=== PATIENT | male | born 1980 | race American Indian/Alaskan Native ===

== ENCOUNTER 2021-07-27 00:53 | Emergency (ER) | payer SELFPAY ==
[2021-07-27 02:02] LABS: Hematocrit 50.8 % (35.5-45.6); Hemoglobin 16.8 gm/dl (11.8-15.2); Mean Corpuscular HGB Conc 33 % (32-34); Mean Corpuscular Volume 80 fl (84-94); Platelet Count 245 K/mm3 (140-440); Red Blood Count 6.33 M/mm3 (3.65-5.03); Red Cell Distribution Width 13.6 % (13.2-15.2)
[2021-07-27] MEDS ORDERED: ONDANSETRON 4 MG/2 ML INJ IV ONE ×2 (02:05→03:13)
[2021-07-27] MEDS ORDERED: MORPHINE 4 MG/1 ML INJ IV ONE (02:05)
[2021-07-27] MEDS ORDERED: SODIUM CHLORIDE 0.9% 1000 ML 1,000 ML IV ONE ×2 (02:05→03:13)
[2021-07-27] MEDS ORDERED: MORPHINE 4 MG/1 ML INJ ONE (02:07)
--- NOTE | 2021-07-27 02:14 | XRay Report ---
CHEST 2 VIEWS INDICATION / CLINICAL INFORMATION: CP. COMPARISON: None available. FINDINGS: SUPPORT DEVICES: None. HEART / MEDIASTINUM: No significant abnormality. LUNGS / PLEURA: No significant pulmonary or pleural abnormality. No pneumothorax. ADDITIONAL FINDINGS: No significant additional findings. IMPRESSION: 1. No acute findings. Signer Name: Adam Grady DO Signed: 07/27/2021 2:10 AM Workstation Name: [id number]
[2021-07-27 02:25] LABS: Bilirubin,Urine NEG (Negative); Blood,Urine NEG (Negative); Color,Urine Yellow (Yellow); Mucus,Urine FEW /HPF; Protein,Urine <15 mg/dL mg/dL (Negative); RBC,Urine < 1.0 /HPF (0.0-6.0); Urobilinogen,Urine < 2.0 mg/dL (<2.0); WBC,Urine < 1.0 /HPF (0.0-6.0)
[2021-07-27 02:29] LABS: Alanine Aminotransferase 23 units/L (7-56); Albumin 4.7 g/dL (3.9-5); BUN/Creatinine Ratio 16; Blood Urea Nitrogen 13 mg/dL (9-20); Calcium 9.5 mg/dL (8.4-10.2); Hemolysis Index 8
[2021-07-27] MEDS ORDERED: fentaNYL 100 MCG/2 ML INJ IV ONE (03:13)
[2021-07-27] MEDS ORDERED: LIDOCAINE VISCOUS 2% 15 ML ORAL LIQD PO ONE (03:14)
[2021-07-27] MEDS ORDERED: ALUM-MAG HYDROXIDE-SIMETHICONE 200-200-20MG/5ML ORAL LIQD 30 ML PO ONE (03:14)
--- NOTE | 2021-07-27 03:20 | Emergency Department Report ---
ED Abdominal Pain HPI - General Chief Complaint: Abdominal Pain Stated Complaint: CHEST PAIN/ABD PAIN/EMESIS Time Seen by Provider: 07/27/21 01:55 Source: patient, EMS Mode of arrival: Stretcher Limitations: No Limitations - History of Present Illness Initial Comments: 40-year-old male presents with epigastric and upper left abdominal pain that started yesterday and progressively getting worse. Patient also reports some nausea with nonbloody emesis x1. No constipation reported or diarrhea. No fever or chills noted. Patient denies any alcohol drink or any illicit drug use except marijuana. Last bowel movement was yesterday and was normal. No other modifying or associated factors reported. Severity scale (0 -10): 0 - Related Data Previous Rx's Medication Instructions Recorded Last Taken Type Omeprazole Magnesium [PriLOSEC Otc] 20 mg PO BID 30 Days #60 tab NS 07/27/21 Unknown Rx Ondansetron [Zofran Odt] 4 mg PO Q8HR 5 Days #15 tab.rapdis 07/27/21 Unknown Rx NS Allergies Allergy/AdvReac Type Severity Reaction Status Date / Time No Known Allergies Allergy Verified 07/27/21 02:10 ED Review of Systems ROS: Stated complaint: CHEST PAIN/ABD PAIN/EMESIS Other details as noted in HPI Comment: All other systems reviewed and negative Gastrointestinal: abdominal pain, nausea, vomiting. denies: diarrhea, constipation ED Past Medical Hx - Past Medical History Previous Medical History?: No - Surgical History Past Surgical History?: No - Social History Smoking Status: Never Smoker Substance Use Type: Marijuana - Medications Home Medications: Home Medications Medication Instructions Recorded Confirmed Last Taken Type Omeprazole Magnesium [PriLOSEC Otc] 20 mg PO BID 30 Days #60 tab NS 07/27/21 Unknown Rx Ondansetron [Zofran Odt] 4 mg PO Q8HR 5 Days #15 tab.rapdis 07/27/21 Unknown Rx NS ED Physical Exam - General Limitations: No Limitations General appearance: alert, in distress (Due to pain) - Head Head exam: Present: normal inspection - Eye Eye exam: Present: normal appearance Pupils: Present: normal accommodation - ENT ENT exam: Present: normal exam, normal orophraynx, mucous membranes moist - Neck Neck exam: Present: normal inspection, full ROM. Absent: tenderness - Respiratory Respiratory exam: Present: normal lung sounds bilaterally. Absent: respiratory distress, accessory muscle use - Cardiovascular Cardiovascular Exam: Present: regular rate, normal rhythm, normal heart sounds - GI/Abdominal GI/Abdominal exam: Present: soft, tenderness (Epigastric and left upper quadrant tenderness to palpation), normal bowel sounds. Absent: guarding, rebound - Extremities Exam Extremities exam: Present: normal inspection, normal capillary refill - Back Exam Back exam: Present: normal inspection. Absent: tenderness - Neurological Exam Neurological exam: Present: alert, oriented X3 - Psychiatric Psychiatric exam: Present: normal affect, normal mood - Skin Skin exam: Present: warm, normal color ED Course Vital Signs 07/27/21 07/27/21 07/27/21 01:38 01:51 02:18 Temperature 98.5 F Pulse Rate 49 L Respiratory 15 14 Rate Blood Pressure 203/106 O2 Sat by Pulse 99 99 100 Oximetry 07/27/21 02:30 Temperature Pulse Rate 43 L Respiratory 14 Rate Blood Pressure 191/98 O2 Sat by Pulse 99 Oximetry - Reevaluation(s) Reevaluation #1: 07/27/21 03:18 Here with abdominal pain and noted with epigastric and left upper quadrant tenderness to palpation--we will go ahead and order acute abdominal labs including lipase, CBC CMP, UA and CT scan of the abdomen/pelvic for any inflammatory changes--in the meantime given IV fluids normal saline 1 L bolus x1, Zofran 4 nausea relief while waiting for the above work-up labs. Reevaluation #2: 07/27/21 04:34 CT scan of the abdomen and pelvis resulted as enteritis/gastritis with no other acute findings--patient reassured and will be discharged home on Prilosec with close follow-up with his primary doctor. ED Medical Decision Making - Lab Data Result diagrams: 07/27/21 01:48 07/27/21 01:48 Critical care attestation.: If time is entered above; I have spent that time in minutes in the direct care of this critically ill patient, excluding procedure time. ED Disposition Clinical Impression: Gastroenteritis Abdominal pain Qualifiers: Abdominal location: epigastric Qualified Code(s): R10.13 - Epigastric pain Disposition: 01 HOME / SELF CARE / HOMELESS Is pt being admited?: No Does the pt Need Aspirin: No Condition: Stable Instructions: Viral Gastroenteritis, Adult, [id number], Abdominal Pain, Adult, [id number], Preventing Gastrointestinal Problems During Exercise Additional Instructions: Increase your daily fluid to help your hydration Take your new medication antiacid to help your symptoms : Follow-up with your primary doctor in the next 3 to 5 days for progress Please do not hesitate to call or return to emergency room if your symptoms worsen Prescriptions: Omeprazole Magnesium [PriLOSEC Otc] 20 mg PO BID 30 Days #60 tab NS Ondansetron [Zofran Odt] 4 mg PO Q8HR 5 Days #15 tab.dirk CRUZ Time of Disposition: 04:38
--- NOTE | 2021-07-27 04:05 | Cat Scan Report ---
CT ABDOMEN AND PELVIS WITH CONTRAST INDICATION / CLINICAL INFORMATION: "Generalized" abdominal pain with nausea and vomiting. TECHNIQUE: Axial CT images were obtained through the abdomen and pelvis after 100 cc of Omnipaque [address] scans at this location are performed using CT dose reduction for ALARA by means of automated exposure control. COMPARISON: None available. FINDINGS: LOWER CHEST: No significant abnormality. AORTA / ARTERIES: No significant abnormality. IVC / VEINS: No significant abnormality. LYMPH NODES: Lack of intraperitoneal fat limits evaluation. COLON: No significant abnormality. APPENDIX: Not visualized. STOMACH / SMALL BOWEL: Small portion of fluid-filled small bowel which does not demonstrate significa nt dilation. PERITONEUM: No free fluid. No free air. No fluid collection. LIVER: No significant abnormality. GALLBLADDER: No significant abnormality. BILE DUCTS: No significant abnormality. PANCREAS: No significant abnormality. SPLEEN: No significant abnormality. ADRENALS: No significant abnormality. RIGHT KIDNEY / URETER: No significant abnormality. LEFT KIDNEY / URETER: No significant abnormality. URINARY BLADDER: No significant abnormality. REPRODUCTIVE ORGANS: No significant abnormality. SKELETAL SYSTEM: No significant abnormality. ADDITIONAL FINDINGS: None. IMPRESSION: 1. Small portion of small bowel which is nondilated but fluid-filled. This may represent enteritis. O therwise no acute intra-abdominal intrapelvic pathology. Signer Name: Adam Grady DO Signed: 07/27/2021 4:01 AM Workstation Name: [id number]
[2021-07-27 05:04] VITALS: BP 131/81
[2021-07-27 05:23] LABS: Basophils % (Manual) 0 % (0.0-1.8); Eosinophils % (Manual) 0 % (0.0-4.3); Platelet Estimate Consistent w Auto; RBC Morphology Normal; Total Cells Counted 100
== END 2021-07-27 05:05 | disposition home or self-care (01) ==
LOC: ED 00:53
DX: K52.9 Noninfective gastroenteritis and colitis, unspecified (principal); R10.13 Epigastric pain; F12.90 Cannabis use, unspecified, uncomplicated
CPT/HCPCS: 36415; 71046; 74177; 80053; 81001; 84484; 85007; 85025; 93005; 96361; 96374; 96375; 96376; 99285; J2270; J2405; J3010; J7030; Q9967